=== PATIENT | male | born 2000 | race Two or more races ===

== ENCOUNTER 2024-11-20 11:54 | Emergency (ER) | payer BC, SELFPAY ==
[2024-11-20 12:40] VITALS: BP 123/75; PULSE 71; RESP 18; TEMP 37.1; O2SAT 97
--- NOTE | 2024-11-20 12:45 | XR_ITS ---
Examination: Hand, left 3 views Technique: Hand AP, oblique, lateral 3 views Date and time of exam: November 20, 2024 1311 hours INDICATIONS: Patient punched a wall today with injury to the hand, hand pain. FINDINGS: Acute fracture distal fifth metacarpal with dorsal angulation of the fracture site No foreign body IMPRESSION: Acute fracture distal fifth metacarpal
--- NOTE | 2024-11-23 06:21 | EDNOTE_ITS ---
Upper Extremity Injury RME/HPI General Chief Complaint: Hand/Wrist Problems Stated Complaint: INJURY TO L) HAND Time Seen by Provider: 11/20/24 12:33 Source: patient Arrival date/time: 11/20/24 11:54 23-year-old male with no known medical history presents to the emergency room with a chief complaint of tenderness and swelling to his left hand after being intoxicated last night and punching the floor Mode of arrival: ambulatory Limitations: no limitations Related Data Allergies Allergy/AdvReac Type Severity Reaction Status Date / Time No Known Allergies Allergy Verified 11/20/24 11:57 Review of Systems Review of Systems Systems Reviewed: All systems reviewed, normal except as documented Constitutional Constitutional: Reports system reviewed and no additional complaints, except as documented, Denies fatigue, Denies fever(s), Denies headache(s) and Denies weakness Eyes Eyes: Reports system reviewed and no additional complaints, except as documented, Denies blurry vision and Denies change in vision ENT Ears, Nose, Mouth, and Throat: Reports system reviewed and no additional complaints, except as documented, Denies otalgia, Denies headache(s), Denies nasal congestion, Denies throat swelling and Denies vertigo Cardiovascular Cardiovascular: Reports system reviewed and no additional complaints, except as documented, Denies chest pain, Denies dyspnea and Denies dyspnea on exertion Respiratory Respiratory: Reports system reviewed and no additional complaints, except as documented, Denies chest congestion, Denies cough, Denies dyspnea, Denies dyspnea on exertion and Denies wheezing Gastrointestinal Gastrointestinal: Reports system reviewed and no additional complaints, except as documented, Denies abdominal pain, Denies cramping, Denies nausea and Denies vomiting Genitourinary Genitourinary: Reports system reviewed and no additional complaints, except as documented, Denies dysuria and Denies hematuria Musculoskeletal Musculoskeletal: Reports system reviewed and no additional complaints, except as documented, Reports arthralgias, Denies back pain, Reports joint swelling and R eports limited range of motion Integumentary/Breasts Skin/Breast: Reports system reviewed and no additional complaints, except as documented and Denies wounds Neurologic Neurologic: Reports system reviewed and no additional complaints, except as documented, Denies confusion, Denies headache(s), Denies lack of coordination, Denies vertigo and Denies weakness Psychiatric Psychiatric: Reports system reviewed and no additional complaints, except as documented, Denies anxiety, Denies confusion, Denies depression, Denies paranoia, Denies suicidal ideation and Denies tactile hallucinations Endocrine Endocrine: Reports system reviewed and no additional complaints, except as documented and Denies fatigue Hematologic/Lymphatic Hematologic/Lymphatic: Reports system reviewed and no additional complaints, except as documented and Denies lymphadenopathy Allergic/Immunologic Allergic/Immunologic: Reports system reviewed and no additional complaints, except as documented, Denies throat swelling, Denies urticaria and Denies wheezing Past Medical History Social History SMOKING STATUS: Never smoker ED Exam General Limitations: Present no limitations General appearance: Present alert and in no apparent distress Head Head exam: Present atraumatic Eye Eye exam: Present normal appearance, PERRL and EOMI ENT ENT exam: Present normal exam, normal oropharynx and mucous membranes moist Neck Neck exam: Present normal inspection, full ROM and trachea midline Chest Chest inspection: Present normal inspection and symmetric chest wall rise Respiratory Respiratory exam: Present normal lung sounds bilaterally Cardiovascular Cardiovascular exam: Present regular rate, normal rhythm and normal heart sounds Abdominal Exam Abdominal exam: Present soft and normal bowel sounds Extremities Exam Extremities exam: Present normal inspection and full ROM Expanded Upper Extremity Exam Shoulder exam: Present normal inspection Arm exam: Present normal inspection Elbow exam: Present normal inspection Forearm/Wrist exam: Present normal inspection Hand exam: Present full ROM, tenderness and swelling Vascular exam: Normal capillary refill Back Exam Back exam: Present normal inspection and full ROM Neurological Exam Neurological exam: Present alert, oriented X3 and CN II-XII intact Psychiatric Psychiatric exam: Present normal affect and normal mood Skin Skin exam: Present warm, dry, intact and normal color Course Quality Measures none Orders Category Date Time Status Splint / Immobilizer STAT Care 11/20/24 13:58 Completed XR hand comp LT min 3V Stat Exams 11/20/24 12:45 Completed Vital Signs Vital signs: Vital Signs Temperature 98.7 F 11/20/24 12:40 Pulse Rate 71 11/20/24 12:40 Respiratory Rate 18 11/20/24 12:40 Blood Pressure 123/75 11/20/24 12:40 Pulse Oximetry (%) 97 11/20/24 12:40 Oxygen Delivery Method Room Air 11/20/24 12:40 Extremity Injury MDM Narrative MDM Narrative:: 23-year-old male with no known medical history presents to the emergency room with a chief complaint of tenderness and swelling to his left hand after being intoxicated last night and punching the floor Patient is hemodynamically stable and in no apparent distress Physical examination shows swelling tenderness and bruising to the patient's left hand near the fifth digit. The patient has full range of motion but it is very tender when he moves his hand. The patient's wrist is nonsymptomatic An x-ray was completed and shows an acute fracture of the distal fifth metacarpal. The patient was placed in a boxer splint. Patient was discharged and educated to follow-up with primary care provider in the next 24 to 48 hours and return to the emergency room for any evidence of worsening signs or symptoms Patient data External records reviewed:: [facility] previous records Clinical information provided by:: patient Social determinants that could affect healthcare access:: none Patient has the following chronic illnesses:: No chronic illness How is presenting disease/condition affected by chronic disease/condition?: no chronic disease Evaluation data The following diagnostics were reviewed and interpreted by me:: lab results and radiology exam(s) Lab and/or radiology exams considered but not ordered:: Labs radiology exams considered and ordered Interpretation Summary: Left hand [id number]: Acute fracture distal fifth metacarpal with dorsal angulation of the fracture site No foreign body IMPRESSION: Acute fracture distal fifth metacarpal Medications / Prescriptions Medications or Prescriptions considered but not ordered:: N/A Medication administrations:: N/A Consultations Consultation(s) initiated? (list below): No Diagnosis Upper Extremity Injury Differential Diagnosis: finger sprain, fracture of hand and other (Hand sprain/acute fracture fifth metacarpal) Most likely diagnosis given after review of the tests above:: Acute fracture of fifth metacarpal Admission Indicated Admission indicated?: not indicated Admission Request Was there a request for admission?: No Disposition Plan Disposition Plan: Discharge Discharge Attestation Discharge Attestation: The patient and all family members were given an opportunity to ask questions and understood the discharge instructions. Discharge instructions specifically effects, indications for sooner follow up or return to the emergency department, and the expected course of current diagnosis. Patient condition: Stable Discharge Plan Plan Patient Disposition: HOME (Self Care) Discharge Disposition comment: Stable Prescriptions/Referrals Referrals: No Primary/Family,Physician [Primary Care Provider] - In 1 week Problem List Clinical Impression: Fracture of hand Patient/Caregiver Discharge Instructions Education Materials: ED Fracture, Upper Extremity Additional Instructions: Please follow-up with your primary care provider in the next 24 to 48 hours Your x-rays were completed and showed fracture of the fifth digit in your hand. You will need a referral to an net application support specialist for further management of this fracture Please keep your splint in place until you are seen and cleared by your doctor For any evidence of worsening signs or symptoms return emergency room immediately Print Language: [place] Stand Alone Forms: [employer] Award Info., Patient Portal Info Letter PA/BEHAVIORAL HEALTH CARE MANAGER Supervising Physician PA/BEHAVIORAL HEALTH CARE MANAGER Supervising Physician: Dr. MEDINA
== END 2024-11-20 14:52 | disposition home or self-care (01) ==
PROVIDERS: Emergency Provider Emergency Medicine
DX: S62.307A Unspecified fracture of fifth metacarpal bone, left hand, initial encounter for closed fracture (principal); W22.8XXA Striking against or struck by other objects, initial encounter
CPT/HCPCS: 29125; 73130; 99284